=== PATIENT | male | born 1960 | race Caucasian/White ===

== ENCOUNTER 2022-11-10 09:45 | Outpatient (RCR) | payer BC, SELFPAY ==
--- NOTE | 2022-11-04 12:03 | PT.OPEX ---
PT [place] Outpatient Eval PT [facility] Outpatient Eval Start: 11/03/22 15:30 Freq: Status: Active Protocol: Document 11/03/22 15:30 TA (Rec: 11/03/22 15:32 [facility] [id number]) E-signed By Hung Franco DPT, MS Physical Therapy Outpatient Evaluation Insurance Information Recert Due Date 01/03/23 Insurance Name Medicaid,Blue [employer] Medical Diagnosis Other shoulder lesions, right shoulder; other shoulder lesions, left shoulder Treating Diagnosis B (L>R) shoulder pain, B shoulder hypomobility, B scapular dyskinesis, decreased B UE flexibility, and B UE weakness. Subjective Subjective Pt presents to PT with c/o B ( L>R) shoulder pain of insidious onset over the past 6 months. Denies injury with gradual onset of sxs. Believes decades of repetitive activities working at [employer] led to overall tightness. No issues reaching forward but reaching out to the side causes sharp pain across B lateral shoulders. Denies previous hx of shoulder pain. Does not exercise. PMH includes obesity, HTN and DM- II. AGGR factors: lifting, reaching behind and out to side, and sleeping on B (L>R) sides. ALLEV factors: rest, Tylenol. Pain Comments 0-7/10 Current Work Status Retired Occupation [employer] Therapy Limitations/Systems Review Not Limited Assessment Assessment/Impression Pt displays signs and symptoms consistent with B shoulder impingement with dx of B RC tendinitis. + B shoulder impingement testing with pain with palpation of B SS insertions. WFL B shoulder flex with limited ABD and functional IR with sx recreation. + L LH biceps testing. Significant weakness with shoulder ER and periscap musculature. Objectively pt displays decreased B shoulder flexibility, L glenohumeral hypomobility, B scapular dyskinesis, and B UE weakness. Pt responded very well to pulleys, stretching, AAROM and strengthening exercises with decreased pain and improved ROM following today?s session. He will benefit from continued skilled PT intervention to address these limitations. Primary Functional Limitations Lifting, reaching behind and out to side, and sleeping on B (L>R) sides Plan of Care Rehabilitation Potential Good Rehabilitation Potential Comments Due to chronic nature of sxs and DM-II Coordination/Communication With Referral Source Treatment Plan/Direct Interventions Joint Mobilization,Manual Therapy,Therapeutic Exercises Frequency/Duration 1x per week for 6-10 visits, decreasing frequency as able. Patient Will Be Discharged From Therapy Completion of LTG(s),Skills Plateau,Independent w/HEP, Independently Progressing Evaluation Billing Untimed Code Treatment Minutes 28 Complexity Moderate Certification Information Initial Certification Date 11/04/22 Ending Certification Date 01/03/23 Provider Signature Shows Agreement With POC & Medical Necessity Physician Signature & Date Requested Please Sign/Date Here Physician Comment/Change : Physician NPI Number #
== END 2023-04-21 23:59 | disposition home or self-care (01) ==
PROVIDERS: PCP Family Medicine; Visit Provider Orthopaedic Surgery Sports Medicine
DX: M75.81 Other shoulder lesions, right shoulder (principal); Z51.89 Encounter for other specified aftercare
CPT/HCPCS: 97110; 97162

== ENCOUNTER 2023-07-12 12:36 | Outpatient (CLI) | payer MEDICARE, OTHER, SELFPAY ==
--- NOTE | 2023-07-12 13:00 | MR_ITS ---
[address] [address] Phone:?[phone] Fax:?[phone] Referring Physician Information: Keo England M.D. [id number] [facility] [address] Phone:?[phone] Fax:?[phone] Patient:?Lawrence Alanis D.O.B:?1960 Sex:?Male Phone:?[phone] [facility] MRN:?[id number] Exam Date:?07/12/2023 EXAM: MRI of the LEFT SHOULDER, without contrast CLINICAL INFORMATION: Male, 62 years old, with left shoulder pain. INDICATION: Evaluate for rotator cuff tear. PRIOR SURGERY: None reported. PLAIN FILMS: Shoulder radiographs dated 09/21/2022. COMPARISONS: No prior MRIs available. TECHNICAL INFORMATION: Using a 1.5T MR scanner and a localizing surface coil: coronal obliques: PD, T2, STIR sagittal obliques: PD, T2 axials: PD, T2 SEDATION: None CONTRAST: None FINDINGS: Bones: Proximal humerus: No fracture or marrow edema/pathology. No humeral Hill-Sachs or reverse Hill-Sachs lesion/impaction or contusion. Glenoid: No fracture or marrow edema/pathology. No osseous Bankart lesion. Rotator cuff and muscles/tendons: Supraspinatus: Mild-moderate supraspinatus tendinopathy with partial-thickness articular surface tearing of the anterior distal tendon fibers over an area measuring 1.4 cm mediolateral by 0.8 cm anteroposterior and involving up to 50% of the tendon thickness (coronal STIR series 4 image 10 and sagittal T2 series 8 image 7). No full-thickness tear, retraction, or muscle atrophy. Infraspinatus: Mild infraspinatus tendinopathy, without tendon tear or muscle atrophy. Teres minor: No tendinopathy, tear or atrophy. Subscapularis: Mild tendinopathy of the superior distal subscapularis, without tendon tear or muscle atrophy. Deltoid: No strain or atrophy. Coracoacromial arch: Acromion morphology: The acromion has type II morphology. No discrete subacromial osseous spur or os acromiale. Acromiohumeral space: The acromiohumeral space is within normal limits. Coracohumeral space: The coracohumeral space is within normal limits. Acromioclavicular joint: Joint: Moderate AC joint arthropathy with 5 mm of inferior osteophytosis, which effaces the underlying supraspinatus (coronal PD series 5 image 10). Ligaments: Coracoclavicular ligaments are intact. Bursae: Subacromial-subdeltoid: Mild-moderate subacromial-subdeltoid bursitis. Subcoracoid: No convincing subcoracoid bursal thickening/bursitis. Biceps tendon: The long head of the biceps tendon is present within the bicipital groove. Mild tendinopathy of the intra-articular biceps long head tendon, without split/tear. Glenohumeral joint: Effusion/cyst: No significant glenohumeral joint effusion. Articular cartilage: Humeral head: No osteochondral abnormalities. Glenoid: No osteochondral abnormalities. Loose bodies: No discrete intra-articular body within the joint. Labrum:?Intrasubstance degeneration and fraying is present throughout the superior and anterior labrum, but is of doubtful clinical significance. No paralabral cyst. Inferior glenohumeral ligament/axillary pouch:?Moderate-marked thickening and abnormal intrasubstance signal is present throughout the inferior capsular ligament structures, with surrounding soft tissue edema (coronal STIR series 4 images 13-19). Additionally, there is extensive soft tissue thickening throughout the rotator interval and subcoracoid recess (sagittal PD series 7 images 10-17). IMPRESSION: 1. Mild-moderate supraspinatus tendinopathy with a small area of low- intermediate grade partial-thickness articular surface tearing. There is also mild infraspinatus & subscapularis tendinopathy, but no full-thickness rotator cuff tear. 2. Findings in keeping with adhesive capsulitis. 3. Moderate AC joint arthropathy, with 5 mm of inferior osteophytosis that effaces the underlying supraspinatus. Additionally, there is mild/moderate subacromial-subdeltoid bursitis. However, the acromiohumeral space is normal. 4. Mild tendinopathy of the intra-articular biceps long head tendon, without split/tear. 5. Intrasubstance degeneration and fraying of the superior and anterior labrum, which is of doubtful clinical significance. 6. No full-thickness chondral defect or evidence of glenohumeral joint osteoarthritis. BC Electronically signed on 07/12/2023 4:03:00 PM by Juan J Rosales M.D.
== END 2023-07-12 12:37 | disposition home or self-care (01) ==
PROVIDERS: PCP Family Medicine; Visit Provider Orthopaedic Surgery Sports Medicine
DX: M25.512 Pain in left shoulder (principal); M75.102 Unspecified rotator cuff tear or rupture of left shoulder, not specified as traumatic; M75.02 Adhesive capsulitis of left shoulder; M75.82 Other shoulder lesions, left shoulder
CPT/HCPCS: 73221

== ENCOUNTER 2024-01-04 13:45 | Outpatient (RCR) | payer MEDICARE, OTHER, SELFPAY | END 2024-02-29 10:56 | disposition home or self-care (01) | PROVIDERS: PCP Family Medicine; Visit Provider Family Medicine | DX: M75.42 Impingement syndrome of left shoulder (principal); Z51.89 Encounter for other specified aftercare; M25.512 Pain in left shoulder; G89.29 Other chronic pain | CPT/HCPCS: 97110; 97161 ==

== ENCOUNTER 2024-11-17 02:09 | Emergency (ER) | payer MEDICARE, OTHER, SELFPAY ==
--- OUTSIDE RECORDS SUMMARY | 2024-11-17 02:11 | XMS_ITS | Clinical Summary ---
Author Organization [facility] Address [place], [place] [address] Care Team Providers Care Metal Cleaner Name Role Phone Rodrick Santana MD Primary Care Provider Blanka Vázquez RN Unavailable [phone] Unavailable [phone] Allergies Active Allergy Reactions Criticality Noted Date Comments Bee Venom Protein (Honey Bee) Anaphylaxis High 09/21/2021 Exenatide Other - Describe In Comment Field 01/14/2023 Nausea, diarrhea, headache Niacin Other - Describe In Comment Field,Diarrhea 04/26/2011 Loose stools Medications Methylcellulose, with sugar, (CITRUCEL, SUCROSE,) powd Take by mouth once daily. 09/20/20 19 Active blood-glucose meterIndications:T ype 2 diabetes mellitus without complication, unspecified whether nursing home insulin use (HC) Dispense meter, test strips, lancets covered by pt ins. E11.9 NIDDM type II - Test 1 time/day 1 Each 05/05/20 21 Active dextrose (glucose) 2 gram chewIndications:Ty pe 2 diabetes mellitus without complication, without long-term current use of insulin (HC) Chew by mouth. 5 tabs as needed for low sugar episodes. 20 Tablet 6 06/02/20 23 Active Accu-Chek Softclix LancetsIndications :Type 2 diabetes mellitus without complication, without long-term current use of insulin (HC) USE TO TEST DAILY 100 Each 3 07/28/20 23 Active blood sugar diagnostic (Accu-Chek Guide test strips) stripIndications:T ype 2 diabetes mellitus without complication, without long-term current use of insulin (HC) Dispense item covered by pt ins. E11.9 NIDDM type II - Test 2 times/day. Reason: High A1C 200 Each 3 11/17/19 24 Active glucose 4 gram chewable tabletIndications: Type 2 diabetes mellitus without complication, without long-term current use of insulin (HC) CHEW 1 TABLET BY MOUTH EACH TIME IF NEEDED FOR BLOOD GLUC< 20 Tablet 01/01/20 24 Active flecainide (TAMBOCOR) 100 mg tabletIndications: Paroxysmal atrial fibrillation (HC) Take 1 Tablet (100 mg) by mouth every 12 hours. 180 Tablet 3 01/05/20 24 Active lisinopriL (PRINIVIL; ZESTRIL) 40 mg tabletIndications: Essential hypertension Take 1 Tablet (40 mg) by mouth once daily. 90 Tablet 3 03/01/20 24 Active FreeStyle Carlos 3 [place] for continuous blood glucose monitor (CGM)Indications:T ype 2 diabetes mellitus without complication, without long-term current use of insulin (HC) To be used to read blood sugars follow heater furnace directions. 1 Each 04/01/20 24 Active CPAPIndications:OS A (obstructive sleep apnea) CPAP machine for home use at pressure 10-20, choice of mask, length of need: 99 Months, frequency of use daily 1 Each 04/13/20 24 Active atorvastatin (LIPITOR) 40 mg tabletIndications: Mixed hyperlipidemia Take 1 Tablet (40 mg) by mouth once daily with evening meal. 90 Tablet 3 06/12/20 24 Active apixaban (ELIQUIS) 5 mg tabletIndications: Paroxysmal atrial fibrillation (HC) Take 1 Tablet (5 mg) by mouth two times daily. 180 Tablet 3 06/12/20 24 Active pen needle (BD Ere 2nd Gen Pen Needle) 32 gauge x 5/32 (disposable insulin pen needle)Indications :Type 2 diabetes mellitus without complication, without long-term current use of insulin (HC) Remove the 2 covers on the pen needle before administering medication dose. 100 Each 08/16/20 24 Active pen tirzepatide (Mounjaro) 10 mg/0.5 mL penIndications:Typ e 2 diabetes mellitus without complication, without long-term current use of insulin (HC) Inject 10 mg subcutaneous once weekly. 2 mL 3 08/29/20 24 Active insulin aspart, U-100, (NovoLOG Flexpen U-100 Insulin) 100 unit/mL (3 mL) penIndications:Typ e 2 diabetes mellitus without complication, without long-term current use of insulin (HC) 25 units subcutaneous before biggest meal of the day. 9 mL 1 10/04/19 25 Active insulin glargine, U-100, (Lantus Solostar U-100 Insulin) 100 unit/mL (3 mL) penIndications:Typ e 2 diabetes mellitus without complication, without long-term current use of insulin (HC) Inject 90 units subcutaneous once daily in the morning. 90 mL 3 10/04/19 25 Active Active Problems Problem Noted Date Diagnosed Date Obesity 09/12/2024 KORI 07/10/2012 AHI-38 06/06/2018 Body mass index 40.0-44.9, adult 05/10/2016 Diabetes mellitus type 2, uncomplicated 05/10/20 16 Irritable bowel syndrome 10/06/2015 Atrial fibrillation 05/09/2014 LFT's abnormal 04/26/2011 Benign neoplasm of colon 11/29/2008 Overview (11/29/2008): colonoscopy 11/2008 polyp,colon in 5 years Mixed hyperlipidemia 10/02/2007 Overview (04/22/2011): On Simvastatin since 10/2008 without myalgias. 04/22/2011 Unspecified essential hypertension 10/02/2007 Flat foot(734) 06/08/2007 Resolved Problems Problem Noted Date Diagnosed Date Resolved Date Diabetes mellitus 04/22/2014 05/10/2016 Palpitations 11/20/2008 05/10/2016 Obesity, unspecified 11/20/2008 016 Encounters Date Type Department Care Team Description 11/12/2024 Telephone [facility] [address] [place] [address] Rodrick Santana MD Referral (Orders for a referral to [facility]) 10/04/2024 Telephone [facility] [address] [place] [address] Rodrick Santana MD Medication Management 09/12/2024 11:45 AM ELECTRONIC CALIBRATION TECHNICIAN Office Visit [facility] [address] [place] [address] Rodrick Santana MD Diabetes (/) 09/12/2024 Travel 08/29/2024 Nurse Triage [facility] [address] [place] [address] Rodrick Santana MD Refill Request (/) 08/29/2024 Telephone [facility] [address] [facility] [place] [address] Rodrick Santana MD Medication Management (mounjaro ) 08/24/2024 11:20 AM ELECTRONIC CALIBRATION TECHNICIAN Office Visit [facility] [address] [place] [address] Kris Vega MD Follow Up (KORI (obstructive sleep apnea)/) 08/22/2024 Orders Only [facility] Scanner 1 scan: (1-Ord) ALFREDO, COMPLIANCE REPORT, 08/22/2024 08/19/2024 Refill [facility] [address] [place] [address] Rodrick Santana MD Refill Request (Lisinopril) from Last 3 Months Immunizations Name Administration Dates Next Due COVID-19 VACCINE SPIKEVAX (M ODERNA 50MCG/0.5ML) 12YO+ PFS 03/29/2024,11/17/2023 COVID-19 vaccine (Pfizer-Bio NTech 30mcg/0.3mL) 12YO+ BIVALENT PF, MDV 12/23/2022 COVID-19 vaccine (Pfizer-Bio NTech 30mcg/0.3mL) 12YO+ ROBI-SUCROSE PF, MDV 02/22/2022 COVID-19 vaccine (Pfizer-Bio NTech 30mcg/0.3mL) PF, MDV 08/20/2021,01/06/2021,12/16/2020 Influenza A (H1N1), Inactivated 10/14/2009 Influenza A (H1N1), Inactiva lisa (Age >=3 Years) 09/02/2009 Influenza Virus, Unspecified 08/03/2019, 07/03/2019,08/01/2018,09/13,07/05/2016,10/06/2015,10/25/2014 ,05/03/2014,07/03/2013,06/15/2011,09/03,08/14/2003 Influenza, High-dose Inactivated 05/26/2024,10/2009 Influenza, IIV3 (Age >=3 years) 06/15/20 11,07/03/2009,08/03/2008,09/24,08/14/2003 Influenza, IIV4 06/03/2020, 9,08/01/2018,09/13,07/05/2016,10/06/2015,10/25/2014 ,05/03/2014,07/03/2013 Influenza, Inactivated AIIV4 (Age 65+ Years) Preserv Free 11/17/2023 Pneumococcal Conj 20-valent (Prevnar 20) 11/17/2023 Pneumococcal Poly,23-Valent (Pneumovax) 04/22/2014 RSV, Bivalent Vaccine Recons tituted (Abrysvo 120MCG/0.5mL) 10/22/2023 Td (Age >=7 Years) 10/13/2018 Tdap 10/29/2008 Zoster (Shingrix-RZV, recombinant) 11/11/2020, Family History Medical History Relation Name Comments Diabetes Father Sergey Heart Disease Father Sergey Hyperlipidemia Father Sergey Diabetes Mother Temi Heart Disease Sister 1 Tracee Hyperlipidemia Sister 2 Samira Hypertension Sister 2 Samira Relation Name Status Comments Father Sergey (Age 75) Mother Temi (Age 86) Sister 1 Tracee Alive Sister 2 Samira Alive Social History Tobacco Use Types Packs/Day Years Used Date Smoking Tobacco: Former Cigarettes 2 10 1 983 - 10/03/1992 Smokeless Tobacco: Never Tobacco Cessation:Counseling Given: No Alcohol Use Standard Drinks/Week Comments No 0 (1 standard drink = 0.6 oz pur e alcohol) PHQ-2 Answer Date Recorded PHQ-2 TOTAL SCORE 2 11/23/2021 Social Connections Answer Date Recorded Do you often feel lonely or isolated from those around you? 0 06/12/2024 Financial Resource Strain Answer Date R ecorded Difficulty of Paying Living Expenses 3 06/12/2024 Difficulty of Paying Living Expenses Not on file 06/12/2024 Food Insecurity Answer Date Recorded Do you worry your food will run out before you are able to buy more? 1 06/12/2024 Transportation Needs Answer Date Record ed Does lack of transportation keep you from medica l appointments? 1 06/12/2024 Does lack of transportation keep you from work, meetings or getting things that you need? 1 06/12/2024 Housing Stability Answer Date Recorded What is your housing situation today? 1 06/12/2024 Utilities Answer Date Recorded Do you have trouble paying f or utilities (for example, heat, electricity, water, phone)? 1 06/12/2024 Sex and Gender Information Value Date Recorded Sex Assigned at Not on file Legal Sex Male 6:38 AM ELECTRONIC CALIBRATION TECHNICIAN Gender Identity Not on file Sexual Orientation Not on file Occupation Industry Job Start Date Job End Date Not on file Not on file Not on file Not on file Obstetrics History Last Filed Vital Signs Vital Sign Reading Time Taken Comments Blood Pressure 124/79 09/12/2024 11:26 AM ELECTRONIC CALIBRATION TECHNICIAN Pulse 68 09/12/2024 11:26 AM ELECTRONIC CALIBRATION TECHNICIAN Temperature 36.8 C (98.3 F) 11/07/2023 8:30 AM ELECTRONIC CALIBRATION TECHNICIAN Respiratory Rate 18 10/01/2019 7:55 AM ELECTRONIC CALIBRATION TECHNICIAN Oxygen Saturation 96% 09/12/2024 11:26 AM ELECTRONIC CALIBRATION TECHNICIAN Inhaled Oxygen Concentration - - Weight 126.1 kg (278 lb) 09/12/2024 11:26 AM ELECTRONIC CALIBRATION TECHNICIAN Height 175.3 cm (5' 9) 08/24/2024 11:24 AM ELECTRONIC CALIBRATION TECHNICIAN Body Mass Index 41.05 08/24/2024 11:24 AM ELECTRONIC CALIBRATION TECHNICIAN Plan of Treatment Upcoming Encounters Date Type Department Care Team (Late st Contact Info) Description 12/12/2024 9:45 AM CDT Orders Only [facility] [address] [facility] [address] [place] 12/14/2024 9:40 AM CDT Office Visit [facility] [address] [place] [address] Rodrick Santana MD [address] [place] [address] Health Maintenance Due Date Last Done Comments Depression screening for age 12+ 11/23/2022 11/23/2021, 10/18/2019, 10/16/2019, Additional history exists AAA screening age 65-74 2023 Medicare Wellness for age 65+ 2023 Influenza for age 65+ 06/03/2024 05/26/2024 , 11/17/2023, 06/03/2020, Additional history exists Colonoscopy through age 75 07/14/202507/14, 06/13/2014, 11/26/2008, Additional history exists BMI (ht and wt on same day) for age 18+ 08/24/2025 08/24/2024, 04/13/2024, 01/05/2024, Additional history exists Tetanus booster 10/13/2028 10/13/2018, 10/29/2008 Lipids for age 45-75 06/12/2029 06/12/2024, 06/02/2023, 05/31/2022, Additional history exists Tdap Completed 10/29/2008 Hepatitis C screening for ag e 18-79 Completed 11/11/2020 Zoster (shingles) series for age 50+ Completed 11/11/2020, 06/03/2020 RSV vaccine for adults or Completed 10/22/2023 Pneumococcal series for age 50+ Completed , 04/22/2014 COVID-19 vaccine series Completed 07/08/20, 03/29/2024, 11/17/2023, Additional history exists Procedures Procedure Name Priority Date/Time Associated Diagnosis Comments HEMOGLOBIN A1C MONITORING (POCT) Routine 09/12/2024 11:08 AM ELECTRONIC CALIBRATION TECHNICIAN Type 2 diabetes mellitus without complication, without long-term current use of insulin (HC) SCAN-DIAGNOSTIC REPORT 08/22/2024 12:00 AM ELECTRONIC CALIBRATION TECHNICIAN LIPID PANEL W REFLEX MEASURED LDL Routine 06/12/2024 10:23 AM CDT Type 2 diabetes mellitus without complication, without long-term current use of insulin (HC) ANTI HCV Routine 11/11/2020 4:32 PM ELECTRONIC CALIBRATION TECHNICIAN Need for hepatitis C screening test SCAN-COLONOSCOPY 07/14/2020 3:00 PM CDT from Last 3 Months or Most Recently Relevant to Health Maintenance Results * (ABNORMAL) HEMOGLOBIN A1C MONITORING (POCT) (09/12/2024 11:08 AM ELECTRONIC CALIBRATION TECHNICIAN) POC HEMOGLOBIN A1C 7.9(H) <6.0 % OF TOTAL HGB [facility] Comment: Any point of care results exhibiting inconsistency with the patient's clinical status should be repeated using a different testing method. Blood BLOOD SPECIMEN / Unknown 09/12/2024 11:08 AM ELECTRONIC CALIBRATION TECHNICIAN 09/12/2024 11:09 AM ELECTRONIC CALIBRATION TECHNICIAN Rodrick Santana MD CHEMISTRY Final Result Performing Organization Address City/State/[facility] Co de Phone Number [facility] [address] [place] [address], [facility] [address] [place] [address] * SCAN-DIAGNOSTIC REPORT (08/22/2024 12:00 AM ELECTRONIC CALIBRATION TECHNICIAN) us Scanner OTHER Final Result * (ABNORMAL) LIPID PANEL W REFLEX MEASURED LDL (06/12/2024 10:23 AM CDT) Pathologist [facility] CHOLESTEROL,TOTAL 164 100 - 199 mg/dL 06/12/2024 6:52 PM CDT [facility] Comment: Cholesterol, Total Reference Ranges Desirable <200 mg/dL Borderline 200-239 mg/dL High >=240 mg/dL TRIGLYCERIDES 366(H) <150 mg/dL 06/12/2024 6:52 PM CDT [facility] HDL CHOLESTEROL 42 >40 mg/dL 6:52 PM CDT [facility] NON-HDL CHOLESTEROL 122 <145 mg/dl 06/12/2024 6:52 PM CDT [facility] CHOL/HDL RATIO 3.90 <4.50 06/12/2024 6:52 PM CDT [facility] LDL CHOLESTEROL 49 <=130 mg/dL 06/12/2024 6:52 PM CDT [facility] VLDL CHOLESTEROL 73(H) <=30 mg/dL 06/12/2024 6:52 PM CDT [facility] PROVIDER ORDERED STATUS RANDOM 06/12/2024 6:52 PM CDT [facility] Blood BLOOD SPECIMEN / Unknown Venipuncture / Unknown 06/12/2024 10:23 AM CDT 06/12/2024 10:25 AM CDT us Rodrick Santana MD CHEMISTRY Final Result [facility] [address] [place] [address], [place] * ANTI HCV (11/11/2020 4:32 PM ELECTRONIC CALIBRATION TECHNICIAN) HEPATITIS C ANTIBODY Non-React carmen Non-React carmen 11/12/2020 4:54 PM ELECTRONIC CALIBRATION TECHNICIAN [facility] Comment:Antibodies to HCV no t detected; does not exclude the possibility of exposure to HCV. Blood BLOOD SPECIMEN / Unknown Venipuncture / Unknown 11/11/2020 4:32 PM ELECTRONIC CALIBRATION TECHNICIAN 11/11/2020 4:34 PM ELECTRONIC CALIBRATION TECHNICIAN us Rodrick Santana MD SEND OUTS Final Result [facility] [address] [place] [address], [place] * SCAN-COLONOSCOPY (07/14/2020 3:00 PM CDT) Narrative Procedure Note Guy Light MD - 07/14/2020 2:05 PM CDT [facility] [address] [facility], [address], [place] [address] Patient Name: Lawrence Alanis Gender: Male Exam Date: 07/14/2020 Visit Number: [id number] Age: 59 Years Date of : 1960 Attending MD: Guy Light MD Medical Record#: [id number] Procedure: Colonoscopy Indications: Diarrhea Referring MD: Referral Self Primary MD: Guillermo Wolff MD Medications: Admitting Medications: 0.9% Normal Saline at TKO Intra Procedure Medications: Patient received monitored anesthesia care. Recovery Medications: naloxone (Narcan) 4 mg by IV Complications: No immediate complications Procedure: An examination of the heart and lungs was performed and found to be withinacceptable limits. The patient was therefore deemed a reasonablecandidate for endoscopy and sedation. The risks and benefits of the procedure were explained to the patient.After obtaining informed consent, the patient received monitoredanesthesia care and I passed the scope without difficulty via the rectum to the cecum. The appendiceal orificeand ic valve were identified. The scope was retroflexed during theexamination The quality of the prep was excellent (Miralax/Gatorade/2tablets Bisacodyl/Magnesium Citrate). This was a complete examination throughout the entire colon. Findings: Polyp location: ascending colon. Quantity: 1. Size: 8 mm. Polyp shape:sessile. Maneuver: polypectomy was performed with a cold snare. Removal: complete. Retrieval: complete. Bleeding:minimal/oozing. Polyp location: transverse colon. Quantity: 1. Size: 4 mm. Polyp shape:flat lesion. Maneuver: polypectomy was performed with a cold biopsy forceps . Removal: complete. Retrieval: complete. Bleeding: minimal/oozing. Polyp location: rectum. Quantity: 1. Size: 4 mm. Polyp shape: flatlesion. Maneuver: polypectomy was performed with a cold snare . Removal: complete. Retrieval: complete. Bleeding: minimal/oozing. Diverticulosis. Location: - descending colon - sigmoid. Description:mild. Size: medium. Quantity: several. No inflammation present. Hemorrhoids. Internal and external hemorrhoids without bleeding. Random biopsies were taken throughout the colon to rule out microscopiccolitis. Comments: Patient's ICV was in a difficult location, unable to intubate. Impression: Colorectal polyps Diverticulosis of colon without diverticulitis Hemorrhoids, unspecified hemorrhoid type Preliminary Plan: The patient and their physician will receive a copy of the pathologyreport as well as pathology-based recommendations for future screening orsurveillance. Follow up as previously discussed; This is documented in Clinic Note. Antiplatelets/Anticoagulants: Apixaban (Eliquis). Last dose: 4 days ago. Restart. Date: 07/14/2020 Recommendation Comments: - Results will be forwarded to Dr. Gamez forongoing management. Pathology Results: A: COLON, RANDOM, BIOPSY: 1. Normal colonic mucosa 2. Negative for microscopic, active, and chronic colitis B: COLON, ASCENDING, POLYP: 1. Tubular adenoma 2. Negative for high grade dysplasia 3. Per the colonoscopy report: a. Polyp size: 8 mm b. Resection: Complete c. Retrieval: Complete C: COLON, TRANSVERSE, POLYP: 1. Tubular adenoma 2. Negative for high grade dysplasia 3. Per the colonoscopy report: a. Polyp size: 4 mm b. Resection: Complete c. Retrieval: Complete D: RECTUM, POLYP: 1. Hyperplastic polyp MICROSCOPIC A: Performed B: Performed C: Performed D: Performed Electronically signed by: Maycol Vergara [place] [address] Orders Instruction(s)/Education: Instruction/Education Timeframe Assessment Colon Polyps K63.5 Diverticulosis/Diverticulitis K63.5 Hemorrhoids K63.5 Final Plan: Return for a colonoscopy in 7 years for Polyp surveillance. We will attempt to contact you at appropriate intervals via U.S. mail. Wemay not be able to find you or contact you at that time, therefore youshould know that the responsibility for following our recommendation restswith you. If you don't hear from us at the time your procedure is due,please contact our office to schedule an appointment. If your contactinformation should change, please contact our office so that we can updateyour record. Additional Comments: No source of your symptoms on this exam. I will forward these results toDr. Gamez for ongoing management. _Electronically signed by: Guy Light MD 07/14/2020 cc: Guillermo Wolff MD cc: Referral Self cc: Leonardo Otero MD us Guy Light MD OTHER Final Resu lt from Last 3 Months or Most Recently Relevant to Health Maintenance Insurance MEDICARE PB ONLY [employer] Care Teams Metal Cleaner Relationship Specialty Start Date End Date Rodrick Santana MD [address] [place] [address] PCP - General Family Practice 11/11/20 Blanka Vázquez RN [address] [place] [address] Bank President 03/19/[address] [place] [address] Antisubmarine Weapons Officer 03/19/24
[2024-11-17 02:28] VITALS: BP 148/89; PULSE 75; RESP 18; TEMP 36.6; O2SAT 96; BMI 40.2
--- NOTE | 2024-11-17 02:45 | ED.GENADULT ---
HPI - General Adult General Date Seen: 11/17/24 Chief complaint: Nausea/Vomiting Stated complaint: Nausea, constipation x 12 days Time Seen by Provider: 11/17/24 02:21 History of Present Illness HPI narrative: Patient is a 64-year-old male here with his for evaluation of vomiting. They note a longstanding history of irritable bowel syndrome with constipation, managed by [facility]. It sounds like they have tried multiple modalities to manage this none of which have worked very well. He says that he has been told that he has what sounds like encopresis, he has done a couple of MiraLax cleanout, apparently they do not feel that that is made a difference. He was started on a new medication for IBS recently and told to discontinue everything else that he took for his IBS. His says he has not had a formed bowel movement in about 11 days. They called the clinic today and were told to try magnesium citrate which he took. Now he is having watery explosive stools although still no formed stool. He does not have significant abdominal pain but he has had 3 episodes of vomiting today which is unusual for him. No fevers, no ill contacts. No abdominal surgeries. He notes a normal colonoscopy in the past 5-10 years. Related Data Home Medications ?Medication ?Instructions ?Recorded ?Confirmed atorvastatin 40 mg tablet 40 mg PO QDAY 09/17/22 11/17/24 blood sugar diagnostic (Accu-Chek #10 ea 09/17/22 07/19/23 Guide test strips) flecainide 100 mg tablet 100 mg PO 09/17/22 02/21/24 glipizide 10 mg tablet, extended ea PO 09/17/22 02/21/24 release 24 hr lisinopril 10 mg tablet See Rx Instructions PO .COMPLEX 09/17/22 02/21/24 metformin 500 mg tablet,extended tab PO 09/17/22 02/21/24 release 24 hr glucose 4 gram chewable tablet g PO 07/19/23 02/21/24 insulin aspart U-100 100 unit/mL 6 unit subcut QPM 07/19/23 11/17/24 (3 mL) subcutaneous pen insulin glargine 100 unit/mL (3 56 unit subcut QPM 07/19/23 11/17/24 mL) subcutaneous pen (Lantus Solostar U-100 Insulin) pen needle, diabetic 32 gauge x #1,200 ea 07/19/23 07/19/23/32 (BD Ree 2nd Gen Pen Needle) RSV vac, preF A and preF B(PF) 120 ml IM 02/21/24 02/21/24 mcg/0.5 mL IM solution (Abrysvo (PF)) apixaban 5 mg tablet (Eliquis) 5 mg PO 02/21/24 02/21/24 insulin lispro 100 unit/mL subcut 02/21/24 02/21/24 subcutaneous pen (Humalog KwikPen (U-100) Insulin) insulin lispro 100 unit/mL 6 unit subcut QPM 02/21/24 02/21/24 subcutaneous solution tirzepatide 2.5 mg/0.5 mL 10 mg subcut QWEEK 02/21/24 11/17/24 subcutaneous pen injector (Mounjaro) lisinopril 40 mg tablet 40 mg PO DAILY 11/17/24 11/17/24 Allergies Allergy/AdvReac Type Severity Reaction Status Date / Time bee venom protein (honey bee) Allergy Severe Verified 11/17/24 03:01 exenatide AdvReac Diarrhea Verified 11/17/24 03:01 niacin AdvReac Vomiting Verified 11/17/24 03:01 Review of Systems Status of ROS: Reports: 10 or more systems reviewed and unremarkable except as noted in History and below [facility] Medical History H. pylori infection ?A04.8 - Other specified bacterial intestinal infections (ICD-10) Sleep apnea ?G47.30 - Sleep apnea, unspecified (ICD-10) Atrial fibrillation ?I48.91 - Unspecified atrial fibrillation (ICD-10) Elevated cholesterol ?E78.00 - Pure hypercholesterolemia, unspecified (ICD-10) Hypertension ?I10 - Essential (primary) hypertension (ICD-10) Type 2 diabetes mellitus ?E11.9 - Type 2 diabetes mellitus without complications (ICD-10) Surgical History H/O retained foreign body fully removed ?Z87.821 - Personal history of retained foreign body fully removed (ICD-10) History of cataract surgery ?Z98.49 - Cataract extraction status, unspecified eye (ICD-10) Social History Smoking Status: Former smoker How often do you have a drink containing alcohol: never AUDIT-C Alcohol total score: 0 Non-prescribed substance use: denies use Exam Narrative: Exam Narrative: Vital signs reviewed In general, alert, nontoxic male. He looks comfortable, somewhat fatigued. Head: Normocephalic, atraumatic. Eyes: Sclera clear. Pupils equal and reactive. ENT: Mucous membranes moist. Neck: Supple without adenopathy. Heart: Regular rate and rhythm without murmur. Lungs: Clear. No increased work of breathing, crackles or wheezes. Abdomen: Protuberant, soft, nontender to palpation. Extremities: Well perfused, pulses intact. No significant edema. Neurologic: Alert, conversant. Speech fluent, face symmetric. Moves all extremities equally. Skin: Warm, dry well perfused. Affect: Normal. Const: Vital Signs, click to edit/add: Vital Signs - 24 hr 11/17/24 02:28 11/17/24 04:15 11/17/24 04:46 Temperature 97.9 F 97.9 F 97.9 F Pulse Rate [Pulse Oximeter] 75 71 71 Respiratory Rate 18 18 18 Blood Pressure [Ri ght Upper Arm] 148/89 H 135/78 135/78 Pulse Oximetry 96 96 Oxygen Delivery Me thod Gerber Nasal Ca nnula Course Course ED Course: Given age an onset of new symptoms of vomiting, I am going to do CT scan to make sure he does not have evidence of an obstruction. Will assess for fecal impaction as well, if needed in the absence of any other findings would be able to try an enema if he does have evidence of impaction. Will check labs as well. He does not have surgical abdomen, does not appear uncomfortable. Evaluation here is reassuring. Labs reviewed. He does have CO2 of 16 suggesting a degree of dehydration but white count and CRP are normal, I reviewed his CT scan and do not see any evidence of obstruction, fecal impaction, or inflammatory changes. Final radiology read is of some hepatic steatosis, consistent with his LFTs, otherwise negative. He has not had further vomiting here. Symptoms may simply be viral. It is possible that diarrhea is related to his irritable bowel but the vomiting seems atypical for that. Will try some clear liquids here, if he is able to tolerate that then I would suggest observation for a day or 2, clear liquids with advancement of diet as able, and Zofran as needed. Certainly if he is worsening, develops high fevers, significant abdominal pain, bloody stools etcetera he should return. Otherwise I would recommend follow-up with [facility] or primary care if not improved over the next couple of days. Vital Signs Vital signs: Initial Vital Signs Temperature 97.9 F 11/17/24 02:28 Temperature Source Temporal Artery Scan 11/17/24 02:28 Pulse Rate 75 11/17/24 02:28 Respiratory Rate 18 11/17/24 02:28 Blood Pressure 148/89 H 11/17/24 02:28 Blood Pressure Mean 108 H 11/17/24 02:28 Blood Pressure Position Sitting 11/17/24 02:28 Pulse Oximetry 96 11/17/24 02:28 Vital Signs Temperature 97.9 F 11/17/24 02:28 Pulse Rate 75 11/17/24 02:28 Respiratory Rate 18 11/17/24 02:28 Blood Pressure 148/89 H 11/17/24 02:28 Pulse Oximetry 96 11/17/24 02:28 Temperature 97.9 F 11/17/24 04:46 Pulse Rate 71 11/17/24 04:46 Respiratory Rate 18 11/17/24 04:46 Blood Pressure 135/78 11/17/24 04:46 Pulse Oximetry 96 11/17/24 04:46 Oxygen Delivery Method Gerber Nasal Cannula 11/17/24 04:46 Medications Administered Medications: Discontinued Medications Generic Name Dose Route Start Last Admin Trade Name Freq PRN Reason Stop Dose Admin Sodium Chloride 500 mls @ 500 mls/hr 11/17/24 02:43 11/17/24 03:51 0.9 % Sodium Chloride 500 Ml IV 11/17/24 03:42 Infused .Q1H ONE Infusion Ondansetron HCl 4 mg 11/17/24 02:43 11/17/24 02:49 Ondansetron 2 Mg/Ml Inj IVP 11/17/24 02:44 4 mg ONCE ONE Administration Medical Decision Making Lab Data Lab results reviewed: Yes I reviewed the patient's lab results Labs: Lab Results 11/17/24 11/17/24 11/17/24 Range/Units 02:43 02:44 02:46 WBC 9.80 (4.50-11.00) K/uL RBC 5.67 (4.30-5.90) m/uL Hgb 15.3 (13.5-17.5) gm/dL Hct 47.2 (37.0-53.0) % MCV 83 (80-100) fL MCH 27 (26-34) pg MCHC 32 (32-36) gm/dL RDW Coeff of Doroteo 15.0 (11.5-15.5) % Plt Count 260 (140-440) K/uL Neut % (Auto) 69.0 (42.0-72.0) % Lymph % (Auto) 19.8 L (20-44) % Door % (Auto) 9.6 (0.0-11.0) % Eos % (Auto) 1.1 (0.0-7.0) % Baso % (Auto) 0.3 (0.0-3.0) % Neut # (Auto) 6.76 (1.7-7.0) K/uL Lymph # (Auto) 1.90 (0.90-2.90) K/uL Door # (Auto) 0.90 (0.00-0.90) K/UL Eos # (Auto) 0.11 (0.00-0.50) K/uL Baso # (Auto) 0.03 (0.00-0.30) K/uL Abs Immat Gran (auto) 0.02 (0.00-0.30) K/uL Imm/Tot Granulo (auto) 0.2 % Sodium 139 (135-149) mmol/L Potassium 5.0 (3.6-5.1) mmol/L Chloride 110 (96-114) mmol/L Carbon Dioxide 16 L (20-32) mmol/L Anion Gap 13 (7-15) mEq/L BUN 13 (7-30) mg/dL Creatinine 0.6 (0.5-1.5) mg/dL Estimated Creat Clear 75.03 Estimated GFR 106 ml/min Glucose 231 H (60-115) mg/dL Lactate 1.8 (0.5-1.9) mmol/L Calcium 9.6 (8.4-10.6) mg/dL Total Bilirubin 0.7 (0.1-1.5) mg/dL Direct Bilirubin 0.3 (0.0-0.5) mg/dL AST 35 (12-35) U/L ALT 53 H (4-50) U/L Alkaline Phosphatase 179 H (40-150) U/L C-Reactive Protein < 0.5 L (0.5-1.0) mg/dL Total Protein 7.9 (6.0-8.3) g/dL Albumin 4.7 (3.3-5.0) g/dL Lipase 92 (23-300) U/L POC Creatinine 0.7 (0.6-1.3) mg/dl Imaging Data CT scan - abdomen: Attestation: I have reviewed the pertinent imaging results. Radiologist's impression: Patient: Lawrence Alanis MR#: [id number] : 1960 Acct:[id number] Loc: ED Service Date: 11/17/[address]: Ordering Physician: Serina Reyes M.D. Date of Service: 11/17/24 Procedure(s): CT abdomen pelvis w con Accession Number(s): [id number] cc: Serina Reyes M.D.; Rodrick Santana M.D.~ For Patients: As a result of the Century Cures Act, medical imaging exams and procedure reports are released immediately into your electronic medical record. You may view this report before your referring provider. If you have questions, please contact your health care provider. INDICATION: Vomiting, diarrhea for 12 days. TECHNIQUE: CT abdomen and pelvis acquired with 137 cc Isovue 370 IV contrast. COMPARISON: 08/04/2020. FINDINGS: Lower chest: Mild subsegmental atelectasis. Liver: Diffusely hypoenhancing parenchyma. Subcentimeter hypodense peripheral left lobe lesion too small to characterize, possibly a cyst or focal fat. Normal in size and attenuation. No suspicious masses. Gallbladder and bile ducts: Unremarkable. No stones or inflammation. No biliary dilatation. Pancreas: Unremarkable. No mass or inflammation. Spleen: Unremarkable. Normal in size. No masses. Adrenal glands: Unremarkable. No nodules. Kidneys: Subcentimeter hypodense lesions that are too small to characterize, likely cysts. Nonobstructive left calcified renal stone measuring up to 6 mm. No suspicious masses, obstructive stones, or hydronephrosis. GI tract: Colonic diverticuli, but no acute diverticulitis. Normal in caliber. No sign of mass or inflammation. Normal appendix. Vasculature: Mild vascular calcifications. Abdominal aorta is normal in caliber. Mesenteric arteries are patent. Lymph nodes: No lymphadenopathy. Peritoneum/Abdominal Wall: Unremarkable. No sign of mass or infiltration. No free air or significant free fluid. Pelvis: Bladder is partially decompressed. Mild heterogeneous prostatomegaly. Bones: No acute or suspicious lesions. Diffuse idiopathic skeletal hyperostosis. IMPRESSION: 1. No acute findings to explain the patient`s symptoms. 2. Steatosis. Please note that all CT scans at this facility use dose modulation, iterative reconstruction, and/or weight-based dosing when appropriate to reduce radiation dose to as low as reasonably achievable. Dictated by Guillermo Bright MD @ 11/17/2024 3:33:30 AM Discharge Plan Discharge Clinical Impression: Nausea vomiting and diarrhea Patient Disposition: Home, Self-Care Condition: Improved Instructions: Acute Nausea and Vomiting (ED) Additional Instructions: You can use Zofran if needed for further nausea or vomiting. I would recommend clear liquids over the next 24 hours. Advance to bland diet as symptoms allow. If symptoms are viral, I would expect the vomiting to subside over the next 1-2 days. Diarrhea may persist for a week to 10 days. If you have persistent vomiting, significant abdominal pain, fevers, bloody stools or other worsening, return to the ER at any time for re-evaluation. If you are not improving over the next few days, please follow-up with primary care or GI. Prescriptions: No Action glipizide 10 mg tablet extended release 24hr PO metformin 500 mg tablet extended release 24 hr PO atorvastatin 40 mg tablet 40 mg PO QDAY lisinopril 10 mg tablet See Rx Instructions PO .COMPLEX Patient Comments: TAKE 1 TABLET BY MOUTH EVERY MORNING AND 2 AT BEDTIME Rx Instructions: orally; (DME) Accu-Chek Guide test strips Strip See Rx Instructions .ROUTE .MEDSUPPLY Qty: 10 Patient Comments: USE TO TEST ONCE DAILY Rx Instructions: As directed flecainide 100 mg tablet 100 mg PO insulin aspart U-100 100 unit/mL (3 mL) insulin pen 6 unit subcut QPM insulin glargine [Lantus Solostar U-100 Insulin] 100 unit/mL (3 mL) insulin pen 56 unit subcut QPM (DME) pen needle, diabetic [BD Ree 2nd Gen Pen Needle] 32 gauge x 5/32 needle See Rx Instructions .ROUTE DIRECTED Qty: 1200 Rx Instructions: As directed glucose 4 gram tablet,chewable PO Eliquis 5 mg tablet 5 mg PO insulin lispro [Humalog KwikPen Insulin] 100 unit/mL insulin pen subcut Mounjaro 2.5 mg/0.5 mL pen injector 10 mg subcut QWEEK Abrysvo (PF) 120 mcg/0.5 mL recon soln IM insulin lispro 100 unit/mL solution 6 unit subcut QPM lisinopril 40 mg tablet 40 mg PO DAILY Follow Up/Referrals: Rodrick Santana MD [Primary Care Provider] - Stand Alone Forms: [facility] Info Instructions
[2024-11-17] MEDS: 0.9 % SODIUM CHLORIDE 500 ML 500 ML IV (02:49)
[2024-11-17] MEDS: ONDANSETRON 2 MG/ML inj 4 MG IVP (02:49)
--- OUTSIDE RECORDS SUMMARY | 2024-11-17 02:51 | XMS_ITS | Clinical Summary ---
Author Organization [employer] [facility] Address [place], [place] [address] Care Team Providers Care Arborist Representative Name Role Phone Rodrick Santana MD Primary Care Provider Blanka Vázquez RN Unavailable [phone] Unavailable [phone] Allergies Active Allergy Reactions Criticality Noted Date [...] 3 03/01/20 24 Active FreeStyle Carlos 3 [place] for continuous blood glucose monitor (CGM)Indications:T ype 2 diabetes mellitus without complication, without long-term current use of insulin (HC) To be used to read blood sugars follow process assistant directions. 1 Each 04/01/20 24 Active CPAPIndications:OS [...] 3 06/12/20 24 Active pen needle (BD Ree 2nd Gen Pen Needle) 32 gauge x [...] Type Department Care Team Description 11/12/2024 Telephone [facility] [address] [place] [address] Rodrick Santana MD Referral (Orders for a referral to [facility]) 10/04/2024 Telephone [facility] [address] [place] [address] Rodrick Santana MD Medication Management 09/12/2024 11:45 AM FACULTY I ON CALL MEDICAL ASSISTANT Office Visit [facility] [address] [place] [address] Rodrick Santana MD Diabetes (/) 09/12/2024 Travel 08/29/2024 Nurse Triage [facility] [address] [place] [place] [address] Rodrick Santana MD Refill Request (/) 08/29/2024 Telephone [facility] [address] [place] [address] Rodrick Santana MD Medication Management (mounjaro ) 08/24/2024 11:20 AM FACULTY I ON CALL MEDICAL ASSISTANT Office Visit [facility] [address] [place] [address] Kris Vega MD Follow Up (KORI (obstructive sleep apnea)/) 08/22/2024 Orders Only [facility] Scanner 1 scan: (1-Ord) ALFREDO, COMPLIANCE REPORT, 08/22/2024 08/19/2024 Refill [facility] [address] [place] [address] Rodrick Santana MD Refill Request (Lisinopril) from [...] on file Legal Sex Male 6:38 AM FACULTY I ON CALL MEDICAL ASSISTANT Gender Identity Not on file Sexual Orientation Not on file Occupation Industry Job Start Date Job End Date Not on file Not on file Not on file Not on file Obstetrics History Last Filed Vital Signs Vital Sign Reading Time Taken Comments Blood Pressure 124/79 09/12/2024 11:26 AM FACULTY I ON CALL MEDICAL ASSISTANT Pulse 68 09/12/2024 11:26 AM FACULTY I ON CALL MEDICAL ASSISTANT Temperature 36.8 C (98.3 F) 11/07/2023 8:30 AM FACULTY I ON CALL MEDICAL ASSISTANT Respiratory Rate 18 10/01/2019 7:55 AM FACULTY I ON CALL MEDICAL ASSISTANT Oxygen Saturation 96% 09/12/2024 11:26 AM FACULTY I ON CALL MEDICAL ASSISTANT Inhaled Oxygen Concentration - - Weight 126.1 kg (278 lb) 09/12/2024 11:26 AM FACULTY I ON CALL MEDICAL ASSISTANT Height 175.3 cm (5' 9) 08/24/2024 11:24 AM FACULTY I ON CALL MEDICAL ASSISTANT Body Mass Index 41.05 08/24/2024 11:24 AM FACULTY I ON CALL MEDICAL ASSISTANT Plan of Treatment Upcoming Encounters Date Type Department Care Team (Late st Contact Info) Description 12/12/2024 9:45 AM CDT Orders Only [facility] [address] [facility] [address] [place] 12/14/2024 9:40 AM CDT Office Visit [facility] [address] [place] [address] Rodrick Santana MD [address] [place] [address] Health Maintenance Due Date Last Done Comments [...] A1C MONITORING (POCT) Routine 09/12/2024 11:08 AM FACULTY I ON CALL MEDICAL ASSISTANT Type 2 diabetes mellitus without complication, without long-term current use of insulin (HC) SCAN-DIAGNOSTIC REPORT 08/22/2024 12:00 AM FACULTY I ON CALL MEDICAL ASSISTANT LIPID PANEL W REFLEX MEASURED LDL Routine 06/12/2024 10:23 AM CDT Type 2 diabetes mellitus without complication, without long-term current use of insulin (HC) ANTI HCV Routine 11/11/2020 4:32 PM FACULTY I ON CALL MEDICAL ASSISTANT Need for hepatitis C screening test SCAN-COLONOSCOPY 07/14/2020 3:00 PM CDT from Last 3 Months or Most Recently Relevant to Health Maintenance Results * (ABNORMAL) HEMOGLOBIN A1C MONITORING (POCT) (09/12/2024 11:08 AM FACULTY I ON CALL MEDICAL ASSISTANT) POC HEMOGLOBIN A1C 7.9(H) <6.0 % OF TOTAL HGB [facility] Comment: Any point of care results exhibiting inconsistency with the patient's clinical status should be repeated using a different testing method. Blood BLOOD SPECIMEN / Unknown 09/12/2024 11:08 AM FACULTY I ON CALL MEDICAL ASSISTANT 09/12/2024 11:09 AM FACULTY I ON CALL MEDICAL ASSISTANT Rodrick Santana MD CHEMISTRY Final Result Performing Organization Address City/State/[facility] Co de Phone Number [facility] [address] [place] [address], [facility] [address] [place] [address] * SCAN-DIAGNOSTIC REPORT (08/22/2024 12:00 AM FACULTY I ON CALL MEDICAL ASSISTANT) us Scanner OTHER Final Result * (ABNORMAL) LIPID PANEL W REFLEX MEASURED LDL (06/12/2024 10:23 AM CDT) Pathologist [facility] CHOLESTEROL,TOTAL 164 100 - 199 mg/dL 06/12/2024 6:52 PM CDT [facility] Comment: Cholesterol, Total Reference Ranges Desirable <200 mg/dL Borderline 200-239 mg/dL High >=240 mg/dL TRIGLYCERIDES 366(H) <150 mg/dL 06/12/2024 6:52 PM CDT [facility] HDL CHOLESTEROL 42 >40 mg/dL 6:52 PM CDT [facility] NON-HDL CHOLESTEROL 122 <145 mg/dl 06/12/2024 6:52 PM CDT [facility] CHOL/HDL RATIO 3.90 <4.50 06/12/2024 6:52 PM CDT [facility] LDL CHOLESTEROL 49 <=130 mg/dL 06/12/2024 6:52 PM CDT [facility] VLDL CHOLESTEROL 73(H) <=30 mg/dL 06/12/2024 6:52 PM CDT [facility] PROVIDER ORDERED STATUS RANDOM 06/12/2024 6:52 PM CDT [facility] Blood BLOOD SPECIMEN / Unknown Venipuncture / Unknown 06/12/2024 10:23 AM CDT 06/12/2024 10:25 AM CDT us Rodrick Santana MD CHEMISTRY Final Result [facility] [address] [place] [address], [place] * ANTI HCV (11/11/2020 4:32 PM FACULTY I ON CALL MEDICAL ASSISTANT) HEPATITIS C ANTIBODY Non-React carmen Non-React carmen 11/12/2020 4:54 PM FACULTY I ON CALL MEDICAL ASSISTANT [facility] Comment:Antibodies to HCV no t detected; does not exclude the possibility of exposure to HCV. Blood BLOOD SPECIMEN / Unknown Venipuncture / Unknown 11/11/2020 4:32 PM FACULTY I ON CALL MEDICAL ASSISTANT 11/11/2020 4:34 PM FACULTY I ON CALL MEDICAL ASSISTANT us Rodrick Santana MD SEND OUTS Final Result [facility] [address] [place] [address], [place] * SCAN-COLONOSCOPY (07/14/2020 3:00 PM CDT) Narrative Procedure Note Guy Light MD - 07/14/2020 2:05 PM CDT [facility] [address], [address], [place] [address] Patient Name: Lawrence Alanis Gender: Male Exam Date: 07/14/2020 Visit Number: [id number] Age: 59 Years Date of : 1960 Attending MD: Guy Light MD Medical Record#: [id number] Procedure: Colonoscopy Indications: Diarrhea Referring MD: Referral [...] signed by: Maycol Vergara [place] [address] Orders Instruction(s)/Education: Instruction/Education Timeframe Assessment Colon Polyps [...] Maintenance Insurance MEDICARE PB ONLY [employer] Care Teams Arborist Representative Relationship Specialty Start Date End Date Rodrick Santana MD [address] [place] [address] PCP - General Family Practice 11/11/20 Blanka Vázquez RN [address] [place] [address] Information Technology Project Manager 03/19/[address] [place] [address] Fax Machine Operator 03/19/24
[2024-11-17 02:52] LABS: Creatinine, Point-of-Care* 0.7 mg/dl (0.6-1.3)
[2024-11-17 02:59] LABS: Lactate Sepsis w/Reflex* 1.8 mmol/L (0.5-1.9)
[2024-11-17 03:02] LABS: Basophils Absolute Auto 0.03 K/uL (0.00-0.30); Basophils Percent Auto 0.3 % (0.0-3.0); Eosinophils Absolute Auto 0.11 K/uL (0.00-0.50); Eosinophils Percent Auto 1.1 % (0.0-7.0); Hematocrit 47.2 % (37.0-53.0); Hemoglobin* 15.3 gm/dL (13.5-17.5); Immature Granulocytes Abs Auto 0.02 K/uL (0.00-0.30); Immature Granulocytes Pct Auto 0.2 %; Lymphocytes Percent Auto 19.8 % (20-44); Mean Corpuscular HGB Conc 32 gm/dL (32-36); Mean Corpuscular Hemoglobin 27 pg (26-34); Mean Corpuscular Volume 83 fL (80-100); Monocytes Percent Auto 9.6 % (0.0-11.0); Neutrophils Absolute Auto 6.76 K/uL (1.7-7.0); Platelet Count* 260 K/uL (140-440); Red Blood Count 5.67 m/uL (4.30-5.90)
[2024-11-17 03:04] LABS: Slide Review Reflex No
[2024-11-17 03:17] LABS: Albumin* 4.7 g/dL (3.3-5.0)
[2024-11-17 03:18] LABS: Chloride* 110 mmol/L (96-114); Sodium* 139 mmol/L (135-149)
[2024-11-17 03:20] LABS: Aspartate Amino Transferase* 35 U/L (12-35); Bilirubin Direct* 0.3 mg/dL (0.0-0.5); Bilirubin Total* 0.7 mg/dL (0.1-1.5); Total Protein* 7.9 g/dL (6.0-8.3)
[2024-11-17 03:21] LABS: Creatinine* 0.6 mg/dL (0.5-1.5); Est. Creatinine Clearance* 75.03; Estimated Glomerular Filt Rate 106 ml/min
[2024-11-17 03:21] LABS: Alanine Aminotransferase* 53 U/L (4-50); Alkaline Phosphatase* 179 U/L (40-150); Lipase* 92 U/L (23-300)
[2024-11-17 03:22] LABS: Anion Gap 13 mEq/L (7-15); Blood Urea Nitrogen* 13 mg/dL (7-30); Calcium* 9.6 mg/dL (8.4-10.6); Carbon Dioxide* 16 mmol/L (20-32); Glucose* 231 mg/dL (60-115)
[2024-11-17 03:30] LABS: C Reactive Protein* < 0.5 mg/dL (0.5-1.0)
[2024-11-17 04:15] VITALS: BP 135/78; PULSE 71; RESP 18; TEMP 36.6
[2024-11-17 04:46] VITALS: BP 135/78; PULSE 71; RESP 18; TEMP 36.6; O2SAT 96
== END 2024-11-17 04:30 | disposition home or self-care (01) ==
PROVIDERS: Emergency Provider Emergency Medicine; PCP Family Medicine
DX: R11.2 Nausea with vomiting, unspecified (principal); R19.7 Diarrhea, unspecified
CPT/HCPCS: 36415; 74177; 80048; 80076; 82565; 83605; 83690; 85025; 86140; 96374; 99284; J2405; J7030; Q9967